=== PATIENT | female | born 1970 | race Caucasian/White ===

== ENCOUNTER 2016-11-24 07:43 | Emergency (ER) | payer BC ==
[~2016-11-24] VITALS: Ht 172.7 cm; Wt 68.0 kg
[2016-11-24 07:47] VITALS: BP 126/96; PULSE 61; RESP 16; TEMP 97.1; O2SAT 100
[2016-11-24] MEDS ORDERED: NS 500 ML IV ONE (08:00)
[2016-11-24 08:21] LABS: BASOPHILS % (AUTO) 0.7 % (0.0-2.0); EOSINOPHILS # (AUTO) 0.1 K/uL (0.0-0.4); EOSINOPHILS % (AUTO) 1.6 % (0.0-4.0); HEMATOCRIT 38.6 % (36-48); HEMOGLOBIN 13.1 g/dL (12.0-16.0); LYMPHOCYTES # (AUTO) 1.6 K/uL (1.0-5.5); LYMPHOCYTES % (AUTO) 24.2 % (20.5-51.5); MEAN CORPUSCULAR HEMOGLOBIN 30 pg (27-31); MEAN CORPUSCULAR HGB CONC 34 % (32-36); MEAN CORPUSCULAR VOLUME 88 fL (79.0-98.0); MONOCYTES # (AUTO) 0.3 K/uL (0.0-1.0); MONOCYTES % (AUTO) 4.4 % (1.7-9.3); NEUTROPHILS # (AUTO) 4.4 K/uL (1.8-7.7); NEUTROPHILS % (AUTO) 69.1 % (40.0-70.0); PLATELET COUNT (AUTO) 168 K/uL (130-430); RED BLOOD CELL COUNT(AUTO) 4.41 MIL/uL (4.2-6.2); WHITE BLOOD COUNT (AUTO) 6.4 K/uL (4.8-10.8)
[2016-11-24 08:29] LABS: CALCIUM 9.4 mg/dL (8.4-11.0); CREATININE 0.99 mg/dL (0.55-1.30)
[2016-11-24 08:36] LABS: TOTAL BILIRUBIN 0.2 mg/dL (0.0-1.0); TOTAL PROTEIN, SERUM 7.7 g/dL (6.4-8.3)
[2016-11-24] MEDS ORDERED: IOHEXOL 100 ML IV ONE (08:47)
[2016-11-24 09:06] LABS: ERYTHROCYTE SEDIMENTATION RATE 9 MM/HR (0-20)
[2016-11-24 09:57] VITALS: BP 124/90; PULSE 64; RESP 16; TEMP 97; O2SAT 100
== END 2016-11-24 09:57 | disposition home or self-care (01) ==
LOC: SED 07:43
DX: H00.011 Hordeolum externum right upper eyelid (principal); R03.0 Elevated blood-pressure reading, without diagnosis of hypertension; Z88.1 Allergy status to other antibiotic agents
CPT/HCPCS: 36415; 70481; 80053; 81025; 85025; 85651; 96360; 96361; 99285; J7040; Q9967